=== PATIENT | female | born 1980 | race Caucasian/White ===

== ENCOUNTER → 2016-05-28 | Outpatient (REF) | payer OTHER | LOC: M LABNEURO 09:24 | PROVIDERS: ATTEND Physician Assistant Medical | DX: G40.909 Epilepsy, unspecified, not intractable, without status epilepticus (principal); E55.9 Vitamin D deficiency, unspecified ==

== ENCOUNTER → 2016-09-19 | Outpatient (CLI) | payer OTHER ==
[2016-09-19 18:57] LABS: BASO # 0.1 K/mm3 (0.0-0.2); BASO % 0.7 % (0.0-1.0); EOS # 0.2 K/mm3 (0.0-0.50); LARGE UNSTAINED CELL # 0.2 K/mm3 (0.0-0.4); LARGE UNSTAINED CELL % 1.8 % (0.0-4.0); LYMPH % 24.1 % (24.0-44.0); MEAN CORPUSCULAR HEMOGLOBIN 28.2 pg (27.0-33.0); MEAN CORPUSCULAR HGB CONC 31.7 g/dl (32.0-36.5); MONO # 0.4 K/mm3 (0.0-0.8); MONO % 5.2 % (0.0-5.0); NEUTROPHILS # 5.6 K/mm3 (1.8-7.7); NEUTROPHILS % 66.1 % (36.0-66.0); PLATELET COUNT, AUTOMATED 367 k/mm3 (150-450); RED CELL DISTRIBUTION WIDTH 12.8 % (11.5-14.5); WHITE BLOOD COUNT 8.4 K/mm3 (4.0-10.0)
[2016-09-19 19:20] LABS: THYROXINE (T4) 9.7 UG/DL (4.5-12.0)
== END ==
LOC: M SMT 11:37
PROVIDERS: ATTEND Advanced Practice Midwife
DX: N92.0 Excessive and frequent menstruation with regular cycle (principal)

== ENCOUNTER → 2016-11-19 | Outpatient (REF) | payer OTHER | LOC: M LABNEURO 10:38 | PROVIDERS: ATTEND Physician Assistant Medical | DX: E55.9 Vitamin D deficiency, unspecified (principal); R56.9 Unspecified convulsions ==

== ENCOUNTER → 2017-01-15 | Outpatient (CLI) | payer OTHER | LOC: M LAB 08:03 | PROVIDERS: ATTEND Advanced Practice Midwife | DX: R63.5 Abnormal weight gain (principal) ==

== ENCOUNTER → 2017-06-11 | Outpatient (REF) | payer OTHER, MEDICAID ==
[2017-06-14 00:06] LABS: LAMOTRIGINE (LAMICTAL) 8.3 ug/mL (2.0-20.0)
== END ==
LOC: M LABNEURO 08:19
DX: R56.9 Unspecified convulsions (principal)
CPT/HCPCS: 36415

== ENCOUNTER → 2017-09-23 | Outpatient (REF) | payer OTHER, MEDICAID ==
[2017-09-26 14:59] LABS: HPV HYBRID CAPTURE II Negative (Negative)
== END ==
LOC: M LAB REF 13:39
DX: Z12.4 Encounter for screening for malignant neoplasm of cervix (principal)

== ENCOUNTER → 2017-10-06 | Outpatient (CLI) | payer OTHER, MEDICAID | LOC: M WUC 16:42 | DX: M25.572 Pain in left ankle and joints of left foot (principal) | CPT/HCPCS: 73630 ==

== ENCOUNTER → 2018-01-02 | Outpatient (CLI) | payer OTHER, MEDICAID ==
[2018-01-06 00:07] LABS: LAMOTRIGINE (LAMICTAL) 11.3 ug/mL (2.0-20.0)
== END ==
LOC: M WUC 09:48
DX: R56.9 Unspecified convulsions (principal); Z51.81 Encounter for therapeutic drug level monitoring
CPT/HCPCS: 36415

== ENCOUNTER → 2018-03-05 | Outpatient (REF) | payer OTHER, MEDICAID ==
[2018-03-05 14:52] LABS: ALBUMIN 3.2 GM/DL (3.2-5.2); ALBUMIN/GLOBULIN RATIO 0.84 (1.00-1.93); ALKALINE PHOSPHATASE 89 U/L (45-117); ALT/SGPT 16 U/L (12-78); ANION GAP 9 MEQ/L (8-16); AST/SGOT 14 U/L (7-37); BILIRUBIN,TOTAL 0.5 MG/DL (0.2-1.0); BLOOD UREA NITROGEN 9 MG/DL (7-18); CALCIUM LEVEL 8.7 MG/DL (8.5-10.1); CARBON DIOXIDE LEVEL 23 MEQ/L (21-32); CHLORIDE LEVEL 107 MEQ/L (98-107); CREATININE FOR GFR 0.86 MG/DL (0.55-1.30); GLOMERULAR FILTRATION RATE > 60.0 (>60); GLUCOSE, FASTING 93 MG/DL (70-100); POTASSIUM SERUM 4.2 MEQ/L (3.5-5.1); SODIUM LEVEL 139 MEQ/L (136-145); T UPTAKE 24 % (30-39); THYROXINE (T4) 16.6 UG/DL (4.5-12.0)
[2018-03-12 00:07] LABS: INSULIN FREE 11 uU/mL (.); INSULIN TOTAL2 11 uU/mL (.)
== END ==
LOC: M LABNEURO 11:26
DX: R63.5 Abnormal weight gain (principal)
CPT/HCPCS: 83525

== ENCOUNTER → 2018-10-13 | Outpatient (CLI) | payer OTHER, MEDICAID ==
--- NOTE | 2018-10-13 21:31 | REP ---
Clinical: Back pain . Technique: AP, lateral, bilateral oblique, and coned-down views. Findings: Alignment and lordosis is maintained. The vertebral bodies including transverse process and spinous processes are intact and normal. There is no evidence for acute fracture / compression injury or subluxation. No evidence for spondylolysis or spondylolisthesis. No significant degenerative change is noted. Impression: Normal lumbosacral spine radiograph series. Electronically Signed by Jesse Perkins MD 10/13/2018 09:23 P
--- NOTE | 2018-10-13 21:32 | REP ---
Clinical: Pain. Technique: Five views of the bilateral sacroiliac joints. Findings: Sacroiliac joints are symmetric and normal for age. No significant degenerative changes are appreciated. Surrounding soft tissues are unremarkable. Impression: Normal symmetric bilateral sacroiliac joints Electronically Signed by Jesse Perkins MD 10/13/2018 09:23 P
--- NOTE | 2018-10-13 21:34 | REP ---
Clinical: Pain. Technique: Single AP weightbearing view of the bilateral knees. Findings: Joint spaces are symmetric and normal. No significant degenerative changes. No acute fracture dislocation. Impression: Normal weightbearing views Electronically Signed by Jesse Perkins MD 10/13/2018 09:25 P
--- NOTE | 2018-10-13 22:03 | REP ---
Clinical: Pain. Technique: AP, lateral, bilateral oblique and sunrise views right knee . Findings: The osseous structures and joint spaces are intact and normal. There is no evidence for acute fracture or dislocation. No joint effusion is appreciated. Surrounding soft tissues are unremarkable. No subcutaneous emphysema or radiodense foreign body. Impression: Normal examination. No acute fracture or dislocation. Electronically Signed by Jesse Perkins MD 10/13/2018 09:55 P
== END ==
LOC: M WUC 17:50
PROVIDERS: ATTEND Internal Medicine Rheumatology
DX: M54.5 Low back pain (principal); M19.91 Primary osteoarthritis, unspecified site

== ENCOUNTER → 2019-04-19 | Outpatient (CLI) | payer OTHER, MEDICAID ==
[2019-04-19 14:00] LABS: HEPATITIS B SURFACE ANTIBODY POSITIVE (POSITIVE); HEPATITIS B SURFACE ANTIGEN NEGATIVE (NEGATIVE); HEPATITIS C VIRUS ABY INDEX < 0.0 INDEX (<0.8); HIV 1&2 SCREEN CENTAUR NEGATIVE (NEGATIVE)
== END ==
LOC: M LAB 08:21
PROVIDERS: ATTEND Dermatology
DX: Z79.899 Other long term (current) drug therapy (principal)

== ENCOUNTER → 2020-02-14 | Outpatient (CLI) | payer OTHER, MEDICAID | LOC: M WUC 12:02 | PROVIDERS: ATTEND Dermatology | DX: Z79.899 Other long term (current) drug therapy (principal) ==

== ENCOUNTER → 2021-02-01 | Outpatient (CLI) | payer OTHER | LOC: M LAB 12:19 | PROVIDERS: ATTEND Physician Assistant | DX: L40.9 Psoriasis, unspecified (principal) ==

== ENCOUNTER → 2021-12-25 | Outpatient (CLI) | payer BC | LOC: M LAB 11:55 | PROVIDERS: ATTEND Physician Assistant | DX: L40.9 Psoriasis, unspecified (principal) ==